=== PATIENT | male | born 1955 | race Native Hawaiian/Other Pacific Islander ===

== ENCOUNTER 2022-01-30 16:43 | Observation (INO) | payer OTHER ==
[~2022-01-30] VITALS: Ht 188 cm; Wt 109.1 kg
[2022-01-30 17:05] VITALS: BP 105/66; TEMP 97.1
[2022-01-30 18:03] LABS: PLATELET COUNT 217 K/uL (142-355)
[2022-01-30 18:13] LABS: POTASSIUM 3.8 mmol/L (3.6-5.2)
[2022-01-30 18:22] LABS: PARTIAL THROMBOPLASTIN TIME 26.7 SECONDS (24.5-33.6)
[2022-01-30 18:25] VITALS: BP 132/72
[2022-01-30 21:10] VITALS: BP 123/68; TEMP 97.9; Ht 188 cm; Wt 109.1 kg
[2022-01-30 23:59] VITALS: BP 122/72; TEMP 98
[2022-01-31 04:22] LABS: PLATELET COUNT 202 K/uL (142-355)
[2022-01-31 05:15] LABS: POTASSIUM 4.1 mmol/L (3.6-5.2)
[2022-01-31 08:00] VITALS: BP 121/67; TEMP 98.4
[2022-01-31] MEDS ORDERED: ASPIRIN ADULT L81 M1 PO (11:14)
[2022-01-31] MEDS ORDERED: PROMSYP53 PO (11:15)
[2022-01-31] MEDS ORDERED: LEVOCETIRIZINE D5 MG PO (11:16)
[2022-01-31] MEDS ORDERED: AZELASTINE HCL0.1 % NAS (11:17)
[2022-01-31] MEDS ORDERED: TESSALON PER100 MG PO (11:18)
[2022-01-31] MEDS ORDERED: KETOROLAC10 MG PO (11:18)
[2022-01-31] MEDS ORDERED: 12HOUR DECONGE120 MG PO (11:19)
[2022-01-31] MEDS ORDERED: PROMETHAZI6.25 MG/5 PO (11:20)
[2022-01-31] MEDS ORDERED: DIAZ5TAB20 PO (11:21)
[2022-01-31] MEDS ORDERED: FURO20TA67 PO (11:22)
[2022-01-31] MEDS ORDERED: GLYBURIDE2.5 M1 PO (11:23)
[2022-01-31] MEDS ORDERED: LEVOFLOXACIN500 MG PO (11:24)
[2022-01-31] MEDS ORDERED: PRED20TA27 PO (11:25)
[2022-01-31] MEDS ORDERED: PROAIR HFA108 MCG/AC INH (11:26)
[2022-01-31] MEDS ORDERED: RYBELSUS3 MG PO (11:27)
[2022-01-31] MEDS ORDERED: FLUTICASON50 MCG/ACT NAS (11:27)
[2022-01-31 12:11] VITALS: BP 119/69; TEMP 97.5
[2022-01-31 16:09] VITALS: BP 139/71; TEMP 98.7
[2022-01-31 20:00] VITALS: BP 145/72; TEMP 97.5
[2022-02-01] VITALS: BP 124/49; TEMP 97.4
[2022-02-01 04:00] VITALS: BP 105/48; TEMP 97.9
[2022-02-01 05:25] LABS: POTASSIUM 3.8 mmol/L (3.6-5.2)
[2022-02-01 07:47] LABS: PLATELET COUNT 205 K/uL (142-355)
[2022-02-01 08:00] VITALS: BP 102/55; TEMP 97.7
[2022-02-01 12:00] VITALS: BP 131/66; TEMP 98.6
[2022-02-01 16:00] VITALS: BP 130/67; TEMP 97.8
[2022-02-01 20:00] VITALS: BP 140/70; TEMP 98.5
[2022-02-02] VITALS: BP 145/80; TEMP 98.6
[2022-02-02 04:00] VITALS: BP 127/52; TEMP 98.4
[2022-02-02 08:00] VITALS: BP 140/68; TEMP 97.9
[2022-02-02 12:00] VITALS: BP 128/60; TEMP 97.9
[2022-02-02 16:00] VITALS: BP 128/57; TEMP 98.5
[2022-02-02 20:00] VITALS: BP 138/62; TEMP 97.9
[2022-02-03] VITALS: BP 126/72; TEMP 98.2
[2022-02-03 04:00] VITALS: BP 115/47; TEMP 98.2
[2022-02-03 08:00] VITALS: BP 148/89; TEMP 98
[2022-02-03] MEDS ORDERED: AZIT250T3 PO (08:38)
[2022-02-03] MEDS ORDERED: LEVO250T2 PO (08:39)
[2022-02-03 12:00] VITALS: BP 127/84; TEMP 98.4
== END 2022-02-03 12:10 | disposition home or self-care (01) ==
LOC: ED 16:43 → MED/SURG 20:08
PROVIDERS: ADMIT Family Medicine; ATTEND Internal Medicine
DX: J18.8 Other pneumonia, unspecified organism (principal); I10 Essential (primary) hypertension; E11.65 Type 2 diabetes mellitus with hyperglycemia; I25.10 Atherosclerotic heart disease of native coronary artery without angina pectoris; R06.02 Shortness of breath; Z79.899 Other long term (current) drug therapy; Z51.81 Encounter for therapeutic drug level monitoring
CPT/HCPCS: 36415; 36600; 80053; 80202; 80307; 81002; 82150; 82550; 82805; 82948; 83690; 83735; 83880; 84484; 85027; 85379; 85610; 85730; 87040; 87486; 87502; 87581; 87633; 87635; 87798; 93005; 94664; 94760; 96360; 96361; 96365; 96366; 96367; 96372; 96374; 96375; 96376; 99220; 99284; G0378; J0456; J1650; J1815; J1956; J2001; J2060; J2270; J2930; J3370; J3475; J3490; Q9963; U0003